=== PATIENT | male | born 1960 | race Two or more races ===

== ENCOUNTER 2019-10-27 10:08 | Inpatient (IN) | payer OTHER, MEDICAID ==
[~2019-10-27] VITALS: Ht 177.8 cm; Wt 108.1 kg
[2019-10-27 10:43] LABS: Hematocrit 46.8 % (41.0-53.0); Hemoglobin 15.4 g/dL (13.5-17.5); Mean Corpuscular Hemoglobin 28.2 pg (28.0-32.0); Mean Corpuscular Hgb Conc. 32.9 g/dL (32.0-36.0); Mean Corpuscular Volume 85.8 fL (80.0-100.0); Platelet Count (auto) 202 10^3/uL (140-450); Red Blood Cells 5.45 10^6/uL (4.5-5.90); Red Cell Distribution Width 13.8 % (11.8-14.3); White Blood Cell 23.5 10^3/uL (4.4-10.8)
[2019-10-27 10:47] LABS: Basophils % (manual) 0 (0.0-2.0); Blast Cells 0; Eosinophils % (manual) 0 (0-7); Metamyelocytes % 0; Myelocytes % 0; Promyelocytes % 0; Reactive Lymphocytes 0
[2019-10-27 10:53] LABS: Albumin 3.3 g/dL (3.4-5.0); Amylase 17 U/L (25-115); Anion Gap 7 (5-15); Blood Urea Nitrogen 11 mg/dL (7-18); Calcium 8.7 mg/dL (8.5-10.1); Carbon Dioxide 27 mmol/L (21-32); Chloride 100 mmol/L (98-107); Glucose 185 mg/dL (74-106); Lipase 70 U/L (73-393); Magnesium 2.8 mg/dL (1.6-2.6); Potassium 3.8 mmol/L (3.5-5.1); Sodium 134 mmol/L (136-145)
[2019-10-27 10:58] LABS: Alanine Aminotransferase 22 U/L (16-61); Alkaline Phosphatase 86 U/L (45-117); Aspartate Aminotransferase 13 U/L (15-37); BUN/Creatinine Ratio 8.5; Bilirubin, Total 1.4 mg/dL (0.2-1.0); GFR African American 73 mL/min; GFR Non-African American 60 mL/min; Total Protein 7.6 g/dL (6.4-8.2)
[2019-10-27 11:30] LABS: Band Neutrophils % (manual) 3; Lymphocytes % (manual) 3 (10.0-50.0); Monocytes % (manual) 9 (0-12)
[2019-10-27] MEDS ORDERED: HYDROmorphone HCL 2 MG/ML VL IV ONE (11:45)
[2019-10-27] MEDS ORDERED: cefTRIAXone 1GM/50ML D5W 50 ML IV ONE (11:45)
[2019-10-27] MEDS ORDERED: METOCLOPRAMIDE HCL 5MG/ml INJ 2ml VIAL IV ONE (11:45)
[2019-10-27] MEDS ORDERED: METOCLOPRAMIDE HCL 5MG/ml INJ 2ml VIAL ONE (11:51)
[2019-10-27 11:54] LABS: Urine Bacteria NONE SEEN /hpf (None Seen); Urine Blood 2+ /uL (Negative); Urine Mucus FEW (None Seen); Urine Specific Gravity 1.032 (1.001-1.035); Urine WBC 6 /hpf (0 - 3)
[2019-10-27] MEDS ORDERED: SODIUM CHLORIDE 0.9% 1,000 ML IV ONE (13:00)
[2019-10-27] MEDS ORDERED: NITROGLYCERIN 0.4 MG SL TAB SL PRN (13:00)
[2019-10-27] MEDS ORDERED: hydrALAZINE HCL 20 MG/ML VL IV PRN (13:00)
[2019-10-27] MEDS ORDERED: MORPHINE SULF INJ 2 MG/ML SYRINGE 1ML IV PRN (13:00)
[2019-10-27] MEDS ORDERED: HYDR12.56 PO (14:02)
[2019-10-27] MEDS ORDERED: TRAM50TA2 PO (14:02)
[2019-10-27] MEDS ORDERED: OMEP-263 PO (14:02)
[2019-10-27] MEDS ORDERED: TAMS0.4C36 PO (14:02)
[2019-10-27] MEDS ORDERED: ATEN50TA PO (14:02)
[2019-10-27] MEDS ORDERED: LACT10SO3 PO (14:02)
[2019-10-27] MEDS ORDERED: FURO1TAB31 PO (14:02)
[2019-10-27] MEDS ORDERED: ASPI-266 PO (14:02)
[2019-10-27] MEDS ORDERED: CYAN500T25 PO (14:03)
[2019-10-27] MEDS ORDERED: ASCO500T11 PO (14:03)
[2019-10-27 14:46] LABS: INR 1.14 (0.9-1.15); Partial Thromboplastin Time 37.2 sec (23.0-31.2)
--- NOTE | 2019-10-27 15:30 | NUR ---
Patient transferred to unit in stable condition.
[2019-10-27 16:42] VITALS: BP 113/57
--- NOTE | 2019-10-27 16:45 | NUR ---
Patient asleep. Stable at this time.
[2019-10-27] MEDS: PIPERACILLIN-TAZOB 3.375GM 100 ML IV SCH ×2 (18:19→23:21)
--- NOTE | 2019-10-27 18:25 | NUR ---
Scheduled IV abx given per order. Patient resting comfortably in bed with no distress noted. Patient stable since transfer to unit.
[2019-10-27] MEDS: HYDROmorphone HCL 2 MG/ML VL IV PRN ×2 (19:15→23:22)
--- NOTE | 2019-10-27 19:15 | NUR ---
Patient medicated for 8/10 abdominal pain. Patient sitting on side of bed. Patient stable since transfer to unit.
--- NOTE | 2019-10-27 19:30 | NUR ---
Opening Shift Note Assumed care of patient, awake and alert. Reported pain.Pain med given not too long ago. Instructed on POC and to call for assist PRN, will continue to monitor for changes Q1hr and PRN.
[2019-10-27 21:00] VITALS: BP 115/64
[2019-10-28] MEDS: HYDROmorphone HCL 2 MG/ML VL IV PRN ×8 (04:13→21:09)
--- NOTE | 2019-10-28 04:57 | NUR ---
paged Dr. Wade regarding pt's fever of 102. waiting for call back
[2019-10-28 05:00] VITALS: BP 115/69
[2019-10-28] MEDS: PIPERACILLIN-TAZOB 3.375GM 100 ML IV SCH ×4 (05:41→23:42)
[2019-10-28 05:46] LABS: Basophils # (auto) 0.1 10 ^3/uL (0-0.2); Basophils % (auto) 0.4 % (0.0-2.0); Eosinophils # (auto) 0 10 ^3/uL (0-0.8); Eosinophils % (auto) 0.1 % (0.0-7.0); Hematocrit 42.3 % (41.0-53.0); Lymphocytes # (auto) 0.9 10 ^3/uL (0.4-5.4); Lymphocytes % (auto) 5.9 % (10.0-50.0); Mean Corpuscular Hemoglobin 28.8 pg (28.0-32.0); Mean Corpuscular Volume 87.3 fL (80.0-100.0); Monocytes # (auto) 0.8 10 ^3/uL (0-1.3); Monocytes % (auto) 5.5 % (0.0-12.0); Neutrophils # (auto) 13.1 10 ^3/uL (1.6-8.6); Neutrophils % (auto) 88.1 % (37.0-80.0); Platelet Count (auto) 153 10^3/uL (140-450); Red Blood Cells 4.85 10^6/uL (4.5-5.90); Red Cell Distribution Width 13.6 % (11.8-14.3); White Blood Cell 14.9 10^3/uL (4.4-10.8)
[2019-10-28 06:05] LABS: Albumin 2.5 g/dL (3.4-5.0); Calcium 7.8 mg/dL (8.5-10.1); Potassium 3.6 mmol/L (3.5-5.1)
[2019-10-28 06:10] LABS: BUN/Creatinine Ratio 11.7; Total Protein 6.5 g/dL (6.4-8.2)
[2019-10-28] MEDS ORDERED: POVIDONE IODINE 10 % TOPICAL OINT 30GM TOP ONE (06:56)
--- NOTE | 2019-10-28 07:00 | NUR ---
brought the pt to the OR. VS stable
[2019-10-28] MEDS ORDERED: levoFLOXacin 500MG 100 ML IV ONE (07:37)
[2019-10-28] MEDS ORDERED: LIDOCAINE 1% HCL (LOCAL ANESTH.) INJ 20ML MDV ONE (07:46)
[2019-10-28] MEDS ORDERED: SUCCINYLCHOLINE CHLORIDE 20 MG/ML 10ML VIAL IV ONE (07:46)
[2019-10-28] MEDS ORDERED: MIDAZOLAM HCL 1MG/1ML-2 ML VIAL ONE (07:49)
[2019-10-28] MEDS ORDERED: PROPOFOL 10 MG/ML 20 ML IV ONE (07:54)
[2019-10-28] MEDS ORDERED: ROCURONIUM 10MG/ML 10ML VIAL IV ONE (07:55)
[2019-10-28] MEDS ORDERED: METOCLOPRAMIDE HCL 5MG/ml INJ 2ml VIAL ONE (08:03)
[2019-10-28] MEDS ORDERED: STERILE WATER 10 ML ONE (08:17)
[2019-10-28] MEDS ORDERED: PHENYLEPHRINE HCL 10 MG/ML VL ONE (08:17)
[2019-10-28] MEDS ORDERED: fentaNYL CITRATE 100 MCG/2 ML VL ONE (08:24)
[2019-10-28] MEDS ORDERED: hydrALAZINE HCL 20 MG/ML VL ONE (08:37)
[2019-10-28] MEDS ORDERED: LIDOCAINE HCL 2% TOP JELLY 5ML TOP ONE (08:46)
[2019-10-28] MEDS ORDERED: MEPERIDINE HCL (25 MG/ML) 1ML VIAL ONE (09:06)
[2019-10-28] MEDS ORDERED: NEOSTIGMINE 1 MG/ML INJ (10mg/10ML VIAL) ONE (09:32)
[2019-10-28] MEDS ORDERED: GLYCOPYRROLATE 0.2 MG/ML 1ML VIAL ONE (09:32)
[2019-10-28] MEDS ORDERED: HYDROmorphone HCL 2 MG/ML VL IV PRN (10:00)
[2019-10-28] MEDS ORDERED: NALOXONE HCL 0.4 MG/ML VIAL IV PRN (10:00)
[2019-10-28] MEDS ORDERED: hydrALAZINE HCL 20 MG/ML VL IV PRN (10:00)
[2019-10-28] MEDS ORDERED: ONDANSETRON HCL 4 MG/2 ML VIAL IV PRN (10:00)
[2019-10-28 11:00] VITALS: BP 119/66
--- NOTE | 2019-10-28 11:14 | NUR ---
PT RETURNED TO FLOOR FROM PACU AT 1100. VSS, AFEBRILE. INCISION SITES X 3 TO ABDOMEN. ABD. BINDER AND JOE DRAIN INTACT. MONITORING CLOSELY.
[2019-10-28 13:00] VITALS: BP 124/71
[2019-10-28] MEDS: ONDANSETRON HCL 4 MG/2 ML VIAL IV PRN ×2 (13:25→20:32)
[2019-10-28] MEDS: D5W/SOD CHLO 0.9% 1,000 ML IV SCH ×2 (13:26→22:23)
[2019-10-28 17:14] VITALS: BP 124/75
--- NOTE | 2019-10-28 17:39 | NUR ---
PT WITH TEMP 102.4. DR ROWLAND NOTIFIED, NEW ORDERS RECEIVED. COOLING MEASURES IN PLACE. WILL CONTINUE TO MONITOR.
[2019-10-28] MEDS: ACETAMINOPHEN 325 MG TAB PO PRN (18:24)
--- NOTE | 2019-10-28 18:27 | NUR ---
90 CC OUT JOE DRAIN, SANGUINOUS.
--- NOTE | 2019-10-28 19:30 | NUR ---
Opening Shift Note Assumed care of patient, awake and alert. Pain reported. pain med given earlier. Instructed on POC and to call for assist PRN, will continue to monitor for changes Q1hr and PRN.
[2019-10-28 21:41] VITALS: BP 138/78
[2019-10-29] MEDS: HYDROmorphone HCL 2 MG/ML VL IV PRN ×6 (00:33→21:02)
[2019-10-29] MEDS: ONDANSETRON HCL 4 MG/2 ML VIAL IV PRN ×2 (02:24→08:46)
--- NOTE | 2019-10-29 02:35 | NUR ---
drained 50ml out sanguinous fluid from the drain
[2019-10-29 05:00] VITALS: BP 140/86
[2019-10-29] MEDS: PIPERACILLIN-TAZOB 3.375GM 100 ML IV SCH ×3 (05:22→18:40)
[2019-10-29 06:04] LABS: Basophils # (auto) 0 10 ^3/uL (0-0.2); Basophils % (auto) 0.2 % (0.0-2.0); Eosinophils # (auto) 0 10 ^3/uL (0-0.8); Eosinophils % (auto) 0.1 % (0.0-7.0); Hematocrit 39.4 % (41.0-53.0); Hemoglobin 13.2 g/dL (13.5-17.5); Lymphocytes # (auto) 0.7 10 ^3/uL (0.4-5.4); Lymphocytes % (auto) 5.8 % (10.0-50.0); Mean Corpuscular Hemoglobin 29.1 pg (28.0-32.0); Mean Corpuscular Hgb Conc. 33.5 g/dL (32.0-36.0); Mean Corpuscular Volume 86.8 fL (80.0-100.0); Monocytes # (auto) 0.9 10 ^3/uL (0-1.3); Monocytes % (auto) 7.7 % (0.0-12.0); Neutrophils # (auto) 10.2 10 ^3/uL (1.6-8.6); Neutrophils % (auto) 86.2 % (37.0-80.0); Nucleated Red Blood Cells % 0.1 %; Platelet Count (auto) 207 10^3/uL (140-450); Red Blood Cells 4.54 10^6/uL (4.5-5.90); Red Cell Distribution Width 13.9 % (11.8-14.3); White Blood Cell 11.8 10^3/uL (4.4-10.8)
--- NOTE | 2019-10-29 06:20 | NUR ---
pt has been taking dilaudid every 4hrs round the clock stated he has so much pain in his abdomen. zofran given 2x in my shift for nausea and hiccups. pt asleep at this time. will continue to monitor
[2019-10-29] MEDS: D5W/SOD CHLO 0.9% 1,000 ML IV SCH ×2 (08:45→19:19)
[2019-10-29 09:00] VITALS: BP 134/73
--- NOTE | 2019-10-29 09:22 | NUR ---
Spoke with pharmacist regarding patient penicillin allergy and his Zosyn order. She stated the order was verified by the ER doctor yesterday and the dose is safe to give as the patient has been receiving it with out any reactions
--- NOTE | 2019-10-29 09:55 | NUR ---
DR. LAKHANI AT BEDSIDE TO DISCUSS PLAN OF CARE WITH PATIENT
[2019-10-29] MEDS: traMADol HCL 50 MG TAB PO SCH ×3 (10:36→22:16)
--- NOTE | 2019-10-29 12:05 | NUR ---
Nutrition Assessment Note please see attached link for complete assessment Est energy needs ABW 89 [id number] kcal (23-25 kcal/kg ABW) Est protein needs: 89-97 g (1.0-1.1g/kg ABW) will reassess PRN Addendum: 10/29/19 at [address] Amended: Links added.
--- NOTE | 2019-10-29 12:27 | NUR ---
PAGED DR. ROWLAND PATIENT IS REQUESTING ICE CHIPS
[2019-10-29 13:00] VITALS: BP 123/73
--- NOTE | 2019-10-29 14:35 | NUR ---
EMPTIED 60 ML OF SEROSANGUINEOUS DRAINAGE FROM JOE DRAIN
[2019-10-29 17:00] VITALS: BP 122/67
--- NOTE | 2019-10-29 19:40 | NUR ---
RECEIVED PATIENT FROM DAY SHIFT RN. PATIENT RESTING IN BED. NO S/S OF DISTRESS NOTED. C/O PAIN @ 5/10 AFTER PAIN MEDICATION GIVEN EARLIER. REINFORCED SCHEDULE OF PAIN MANAGEMENT, WILL COME BACK FOR PAIN MEDICATION LATER WHEN THE TIME IS DUE AND PER PATIENT REQUESTS. PATIENT VERBALIZED UNDERSTANDING. DRESSING ON ABD D/I, JOE DRAIN IN PLACE, ABD BINDER IN PLACE. POC INSTRUCTED AND ENCOURAGED PATIENT TO CALL FOR INDUSTRIAL ECONOMICS TEACHER IF NEEDED. BED IN LOWEST POSITION WITH SIDE RAILS UP X 2. CALL [facility] WITHIN REACH. ALARM ON. CONTINUE TO MONITOR FOR CHANGES Q1H AND PRN.
--- NOTE | 2019-10-29 21:02 | NUR ---
PATIENT C/O PAIN @ 12/24. MEDICATED PATIENT ORDERED. CONTINUE TO MONITOR.
--- NOTE | 2019-10-29 21:30 | NUR ---
REASSESSED PAIN 11/24. CONTINUE TO MONITOR.
[2019-10-29 21:41] VITALS: BP 121/65
[2019-10-30] MEDS: PIPERACILLIN-TAZOB 3.375GM 100 ML IV SCH ×4 (00:27→17:16)
[2019-10-30] MEDS: HYDROmorphone HCL 2 MG/ML VL IV PRN ×6 (01:03→21:18)
--- NOTE | 2019-10-30 01:04 | NUR ---
PATIENT C/O PAIN @ 12/24. MEDICATED PATIENT ORDERED. CONTINUE TO MONITOR.
--- NOTE | 2019-10-30 01:30 | NUR ---
REASSESSED PAIN, PATIENT SLEEPING. NO S/S OF PAIN NOTED. CONTINUE TO MONITOR.
[2019-10-30] MEDS: ACETAMINOPHEN 325 MG TAB PO PRN (04:05)
--- NOTE | 2019-10-30 04:05 | NUR ---
PATIENT TEMP 102, MEDICATED ORDERED. O2 SAT 60% ON RA, PUT PATIENT BACK TO OXYGEN 3L/NC, O2 SAT INCREASED UP TO 83% FOR 10 MINS, RT PAGED, PUT PATIENT ON NON-REBREATHER MASK 10L, O2 SAT INCREASED TO 91%. CONTINUE TO MONITOR.
[2019-10-30 05:00] VITALS: BP 135/68
--- NOTE | 2019-10-30 05:05 | NUR ---
REASSESSED TEMP 101, COOLING MEASURE AND ICE PACKS CONTINUED. O2 SAT 95% ON 10L/NON-REBREATHER MASK. CONTINUE TO MONITOR.
[2019-10-30] MEDS: D5W/SOD CHLO 0.9% 1,000 ML IV SCH ×2 (05:11→14:56)
--- NOTE | 2019-10-30 05:30 | NUR ---
REASSESSED PAIN 09/23. TEMP 98.5. CONTINUE TO MONITOR.
[2019-10-30] MEDS: traMADol HCL 50 MG TAB PO SCH ×3 (06:10→22:07)
--- NOTE | 2019-10-30 06:26 | NUR ---
IV insertion IV access obtained, via clean sterile technique by inserting [22] gauge catheter at [RW] after [1] attempt(s). IV secured properly. No trauma to site. Patient tolerated well. PATIENT ACCIDENTLY PULLED OUT IV ACCESS, IV DC'd with clean sterile technique, catheter fully intact. Pressure dressing applied to site. Patient tolerated well. NOTE:
--- NOTE | 2019-10-30 09:11 | NUR ---
EMPTIED 60 ML OF SEROSANGUINEOUS FLUID FROM JOE DRAIN
[2019-10-30 09:45] VITALS: BP 92/65
[2019-10-30 10:14] LABS: Albumin 2.2 g/dL (3.4-5.0); Calcium 7.8 mg/dL (8.5-10.1); Potassium 3.6 mmol/L (3.5-5.1)
[2019-10-30 10:16] LABS: Basophils # (auto) 0 10 ^3/uL (0-0.2); Basophils % (auto) 0.2 % (0.0-2.0); Eosinophils # (auto) 0 10 ^3/uL (0-0.8); Hematocrit 38.1 % (41.0-53.0); Hemoglobin 12.5 g/dL (13.5-17.5); Lymphocytes # (auto) 1.1 10 ^3/uL (0.4-5.4); Lymphocytes % (auto) 12.9 % (10.0-50.0); Mean Corpuscular Hemoglobin 28.9 pg (28.0-32.0); Mean Corpuscular Hgb Conc. 32.9 g/dL (32.0-36.0); Mean Corpuscular Volume 87.8 fL (80.0-100.0); Monocytes # (auto) 0.9 10 ^3/uL (0-1.3); Monocytes % (auto) 9.9 % (0.0-12.0); Neutrophils # (auto) 6.7 10 ^3/uL (1.6-8.6); Platelet Count (auto) 231 10^3/uL (140-450); Red Blood Cells 4.34 10^6/uL (4.5-5.90); Red Cell Distribution Width 13.7 % (11.8-14.3); White Blood Cell 8.6 10^3/uL (4.4-10.8)
[2019-10-30 10:18] LABS: Bilirubin, Total 0.6 mg/dL (0.2-1.0); Total Protein 6.5 g/dL (6.4-8.2)
--- NOTE | 2019-10-30 10:24 | NUR ---
Dr. Chavez at bedside to discuss plan of care with patient
--- NOTE | 2019-10-30 11:18 | NUR ---
Doctor Rounding Dr. Loya at bedside to discuss plan of care with patient. Order for full liquid diet ordered and doctor stated bandages can be removed and open to air
[2019-10-30 12:43] VITALS: BP 93/70
[2019-10-30 16:39] VITALS: BP 118/73
--- NOTE | 2019-10-30 19:26 | NUR ---
Emptied 70 ml of serosanguineous fluid from JOE to lower abdomen
--- NOTE | 2019-10-30 20:00 | NUR ---
RECEIVED PATIENT FROM DAY SHIFT RN. PATIENT SITTING AT THE SIDE OF BED. NO S/S OF DISTRESS NOTED. C/O PAIN @ 10/10 AFTER PAIN MEDICATION GIVEN EARLIER. REINFORCED SCHEDULE OF PAIN MANAGEMENT, WILL COME BACK FOR PAIN MEDICATION LATER WHEN THE TIME IS DUE AND PER PATIENT REQUESTS. PATIENT VERBALIZED UNDERSTANDING. JOE DRAIN IN PLACE, ABD BINDER IN PLACE. POC INSTRUCTED AND ENCOURAGED PATIENT TO CALL FOR TUMBLER DYEING MACHINE OPERATOR IF NEEDED. BED IN LOWEST POSITION WITH SIDE RAILS UP X 2. CALL MENDOZA WITHIN REACH. CONTINUE TO MONITOR FOR CHANGES Q1H AND PRN.
--- NOTE | 2019-10-30 21:19 | NUR ---
PATIENT C/O PAIN @ 12/24. MEDICATED PATIENT ORDERED. CONTINUE TO MONITOR.
--- NOTE | 2019-10-30 21:45 | NUR ---
REASSESSED PAIN @ 09/23. CONTINUE TO MONITOR.
[2019-10-30 22:00] VITALS: BP 110/56
[2019-10-31] MEDS: PIPERACILLIN-TAZOB 3.375GM 100 ML IV SCH ×4 (00:10→17:31)
--- NOTE | 2019-10-31 00:53 | NUR ---
Emptied 70 ml of serosanguineous fluid from JOE.
[2019-10-31] MEDS: D5W/SOD CHLO 0.9% 1,000 ML IV SCH ×3 (01:15→21:48)
[2019-10-31] MEDS: HYDROmorphone HCL 2 MG/ML VL IV PRN ×6 (01:15→21:40)
--- NOTE | 2019-10-31 01:15 | NUR ---
PATIENT C/O PAIN @ 12/24. MEDICATED PATIENT ORDERED. CONTINUE TO MONITOR.
--- NOTE | 2019-10-31 01:37 | NUR ---
REASSESSED PAIN @ 09/23. CONTINUE TO MONITOR.
[2019-10-31 05:00] VITALS: BP 111/64
--- NOTE | 2019-10-31 05:15 | NUR ---
PATIENT C/O PAIN @ 12/24. MEDICATED PATIENT ORDERED. CONTINUE TO MONITOR.
--- NOTE | 2019-10-31 05:40 | NUR ---
PATIENT SLEEPING. NO S/S OF PAIN NOTED. CONTINUE TO MONITOR.
[2019-10-31] MEDS: traMADol HCL 50 MG TAB PO SCH ×3 (06:07→22:50)
[2019-10-31 09:00] VITALS: BP 114/64
--- NOTE | 2019-10-31 12:33 | NUR ---
Nutrition Followup Note Wt 104.8kg Pt was sitting up in chair at time of rounds. Pt reports appetite is good, pt reports const x 6 days Pt diet has advanced to full liquid and pt po intake is good aeb pt with 92% avg po intake since diet advanced per RN note. Will continue to monitor diet advance and tolerance. Est energy needs ABW 89 [id number] kcal (23-25 kcal/kg ABW) Est protein needs: 63-84g (.06-0.8g/kg BW r/t pt with ANGELIC per MD note ) will reassess PRN Labs: BUn 25H, Creat 1.47H, Alb 2.2L, Ca 7.8L, GLUC 151H BM: pt with no BM per Rn note Skin: Bs 19 low risk, full details in urgent care technician note. PES: Altered nutrition related lab values r.t current chronic medical condition aeb elevated RFTs, mod hypoalb hypocalcemia Decreased nutrient needs r.t adiposity aeb pt`s high BMI of 32.6 kgm2 Comments: 1) Continue to advance diet as medically feaisble 2) refer to OPD dietian on DC 3) continue current plan of care Expected Outcomes/Goals: pt will have improved labs F/u mod 3-5 days
[2019-10-31 13:00] VITALS: BP 123/67
[2019-10-31] MEDS ORDERED: MORPHINE SULF INJ 2 MG/ML SYRINGE 1ML IV PRN (13:00)
[2019-10-31 13:16] LABS: Basophils # (auto) 0.1 10 ^3/uL (0-0.2); Basophils % (auto) 0.9 % (0.0-2.0); Eosinophils # (auto) 0.2 10 ^3/uL (0-0.8); Eosinophils % (auto) 2.3 % (0.0-7.0); Hematocrit 38.6 % (41.0-53.0); Hemoglobin 12.4 g/dL (13.5-17.5); Lymphocytes % (auto) 13.8 % (10.0-50.0); Mean Corpuscular Hemoglobin 28.3 pg (28.0-32.0); Mean Corpuscular Hgb Conc. 32.2 g/dL (32.0-36.0); Monocytes # (auto) 0.7 10 ^3/uL (0-1.3); Monocytes % (auto) 9.8 % (0.0-12.0); Neutrophils # (auto) 5.6 10 ^3/uL (1.6-8.6); Neutrophils % (auto) 73.2 % (37.0-80.0); Platelet Count (auto) 259 10^3/uL (140-450); Red Blood Cells 4.38 10^6/uL (4.5-5.90); Red Cell Distribution Width 13.8 % (11.8-14.3); White Blood Cell 7.6 10^3/uL (4.4-10.8)
[2019-10-31 13:34] LABS: Albumin 2.3 g/dL (3.4-5.0); BUN/Creatinine Ratio 17.7; Calcium 8.4 mg/dL (8.5-10.1); Potassium 3.8 mmol/L (3.5-5.1)
[2019-10-31 13:37] LABS: Bilirubin, Total 0.5 mg/dL (0.2-1.0); Total Protein 6.8 g/dL (6.4-8.2)
[2019-10-31] MEDS: METOCLOPRAMIDE HCL 5MG/ml INJ 2ml VIAL IV SCH ×2 (14:02→22:50)
[2019-10-31 17:00] VITALS: BP 115/53
[2019-10-31] MEDS: SIMETHICONE 80 MG CHEWABLE TABLET PO PRN ×2 (17:30→21:40)
--- NOTE | 2019-10-31 19:37 | NUR ---
DILAUDID 1MG DOSE AT 1722 WAS GIVEN BUT PULLED FROM [facility] UNDER WRONG PATIENT NAME. CHARGE NURSE AND PHARMACIST JONATHAN UNABLE TO OVER RIDE ON [employer] TO CORRECT. PHARMACIST JONATHAN STATES SHE WOULD WITNESS FOR ME THAT THE CORRECT MED AND DOSE WAS GIVEN TO THE CORRECT PATIENT AT 1722.
--- NOTE | 2019-10-31 19:47 | NUR ---
Opening Shift Note Received report and assumed care of patient. Patient is awake and alert. No signs or symptoms of distress noted. Instructed patient on plan of care and to call for assistance as needed. Will continue to monitor.
[2019-10-31 21:34] VITALS: BP 114/58
--- NOTE | 2019-10-31 21:40 | NUR ---
Pain Medication Administration Patient complaining of abdominal pain /. Will administer pain medication per MD order. Will reassess pain level and will continue to monitor.
[2019-10-31] MEDS ORDERED: DOCUSATE ORAL LIQUID 100 MG/10 ML UD GT SCH (22:00)
--- NOTE | 2019-10-31 22:10 | NUR ---
Pain Level Reassessment Patient's pain level reassessed to be 9/10. Offered patient nonpharmacological interventions. Will continue to monitor.
[2019-10-31] MEDS: DOCUSATE SOD 100 MG CAP PO SCH (22:50)
--- NOTE | 2019-10-31 22:50 | NUR ---
Pain Medication Administration Patient complaining of abdominal pain 11/24. Will administer scheduled pain medication per MD order. Will reassess pain level and will continue to monitor.
--- NOTE | 2019-10-31 23:50 | NUR ---
Pain Level Reassessment Patient asleep for pain level reassessment. No signs or symptoms of distress noted, will continue to monitor.
[2019-11-01] MEDS: PIPERACILLIN-TAZOB 3.375GM 100 ML IV SCH ×5 (00:11→23:59)
[2019-11-01 05:00] VITALS: BP 135/71
[2019-11-01] MEDS: traMADol HCL 50 MG TAB PO SCH ×2 (06:00→09:29)
[2019-11-01] MEDS: HYDROmorphone HCL 2 MG/ML VL IV PRN ×4 (06:25→22:40)
[2019-11-01] MEDS: METOCLOPRAMIDE HCL 5MG/ml INJ 2ml VIAL IV SCH ×3 (06:25→22:40)
--- NOTE | 2019-11-01 06:25 | NUR ---
Pain Medication Administration Patient complaining of abdominal pain 11/24. Patient requesting Dilaudid. Educated patient regarding PRN and scheduled pain medications. Patient verbalized understanding, refused scheduled Ultram and continues to request Dilaudid. Will administer pain medication per MD order. Will reassess pain level and will continue to monitor.
[2019-11-01 06:30] LABS: Basophils # (auto) 0 10 ^3/uL (0-0.2); Basophils % (auto) 0.6 % (0.0-2.0); Eosinophils # (auto) 0.2 10 ^3/uL (0-0.8); Eosinophils % (auto) 2.5 % (0.0-7.0); Hematocrit 36.7 % (41.0-53.0); Hemoglobin 12.3 g/dL (13.5-17.5); Lymphocytes # (auto) 1.2 10 ^3/uL (0.4-5.4); Lymphocytes % (auto) 18.8 % (10.0-50.0); Mean Corpuscular Hemoglobin 29.1 pg (28.0-32.0); Mean Corpuscular Hgb Conc. 33.4 g/dL (32.0-36.0); Mean Corpuscular Volume 87.2 fL (80.0-100.0); Monocytes # (auto) 0.5 10 ^3/uL (0-1.3); Monocytes % (auto) 8.4 % (0.0-12.0); Neutrophils # (auto) 4.3 10 ^3/uL (1.6-8.6); Neutrophils % (auto) 69.7 % (37.0-80.0); Nucleated Red Blood Cells % 0.2 %; Platelet Count (auto) 277 10^3/uL (140-450); Red Blood Cells 4.21 10^6/uL (4.5-5.90); Red Cell Distribution Width 13.8 % (11.8-14.3); White Blood Cell 6.2 10^3/uL (4.4-10.8)
[2019-11-01] MEDS: D5W/SOD CHLO 0.9% 1,000 ML IV SCH ×2 (06:38→17:15)
[2019-11-01 06:39] LABS: Calcium 8.1 mg/dL (8.5-10.1); Potassium 3.1 mmol/L (3.5-5.1)
[2019-11-01 06:41] LABS: BUN/Creatinine Ratio 12.3
--- NOTE | 2019-11-01 06:55 | NUR ---
Pain Level reassessment Patient's pain level reassessed to 9/10. Offered patient nonpharmacological interventions. Patient states pain is from stomach gas, patient refuses simethicon at this time. Encouraged patient to ambulate. Will continue to monitor.
--- NOTE | 2019-11-01 07:00 | NUR ---
JOE Drain Output 40ml fluid
--- NOTE | 2019-11-01 07:35 | NUR ---
Opening Shift Note Assumed care of patient, awake and alert. No S/S of distress/SOB or pain reported at this time. Instructed on POC and to call for assist PRN, JOE patent and draining serosanguineous output, and mid abdomen dressing has old dry drainage, BS active, SCD to BLE, call light within reach, instructed to call for assist, cont care, will continue to monitor for changes Q1hr and PRN.
[2019-11-01 08:00] VITALS: BP 120/80
[2019-11-01 09:00] VITALS: BP 120/80
[2019-11-01] MEDS: POTASSIUM CHL 20MEQ/100ML 100 ML IV SCH ×2 (09:30→16:54)
[2019-11-01] MEDS: DOCUSATE SOD 100 MG CAP PO SCH ×2 (09:30→22:40)
--- NOTE | 2019-11-01 11:50 | NUR ---
IV insertion IV access obtained, via clean sterile technique by inserting 20 gauge catheter at left AC after 1 attempt. IV secured properly. No trauma to site. Patient tolerated procedure well.
--- NOTE | 2019-11-01 12:20 | NUR ---
SURGICAL/DRESSING CHANGE CLARIFIED WITH DR ROWLAND REGARDING CHANGING DRESSING, NEW ORDERS RECEIVED TO REMOVE DRESSING AND LEAVE OPEN TO AIR, PT UPDATED, CONT CARE
[2019-11-01 13:00] VITALS: BP 134/59
--- NOTE | 2019-11-01 13:30 | NUR ---
ACTIVITY PT OOB TO CHAIR, OFFERED PT A FWW TO EASE WITH AMBULATION, ALSO ENCOURAGED PT TO USE INCENTIVE SPIROMETER, Q1HR WA, PT VERBALIZED UNDERSTANDING, CONT CARE
--- NOTE | 2019-11-01 16:30 | NUR ---
BM PT REPORTED LARGE LOOSE BM, NOTED SMALL FORMED STOOL IN BSC, CONT CARE
[2019-11-01] MEDS ORDERED: POTASSIUM CHL 20MEQ/100ML 100 ML IV SCH (16:45)
[2019-11-01 17:00] VITALS: BP 118/73
--- NOTE | 2019-11-01 18:15 | NUR ---
DRESSING REMOVED SITE IRRIGATED WITH NS, PADDED DRY WIT STERILE GAUZE, PT TOLERATED WELL, 16 WELL APPROXIMATED FARZANA NOTED ACROSS TOP ABDOMEN, NO REDNESS, FOUL ODOR OR DRAINAGE NOTED, RIGHT MID ABD 2 WELL APPROXIMATED FARZANA, SITE PINK, NO FOUL ODOR OR DRAINAGE NOTED, 20ML OF DARK SEROSANG NOTED AND DRAINED, CONT CARE
--- NOTE | 2019-11-01 19:36 | NUR ---
Opening Shift Note Received report and assumed care of patient. Patient is asleep, awakens to voice. No signs or symptoms of distress noted. Instructed patient on plan of care and to call for assistance as needed. Will continue to monitor.
[2019-11-01 22:00] VITALS: BP 131/74
[2019-11-01] MEDS: oxyCODONE ER 20 MG TAB PO SCH (22:00)
--- NOTE | 2019-11-01 22:40 | NUR ---
Pain Medication Refusal/Administration Patient complaining of abdominal pain 11/24. Patient is scheduled to receive oxycodone. Patient refusing oxycodone, states he does not react well to it. Patient requesting Dilaudid PRN medication to be administered instead. Will administer pain medication per MD order. Will reassess pain level and will continue to monitor.
--- NOTE | 2019-11-01 23:10 | NUR ---
Pain Level Reassessment Patient asleep for pain level reassessment. No signs or symptoms of distress noted, will continue to monitor.
[2019-11-02] MEDS: D5W/SOD CHLO 0.9% 1,000 ML IV SCH ×3 (03:15→23:15)
[2019-11-02] MEDS: HYDROmorphone HCL 2 MG/ML VL IV PRN ×5 (03:43→23:15)
--- NOTE | 2019-11-02 03:43 | NUR ---
Pain Medication Administration Patient complaining of abdominal pain 10/10. Will administer scheduled pain medication per MD order. Will reassess pain level and will continue to monitor.
--- NOTE | 2019-11-02 04:13 | NUR ---
Pain Level reassessment Patient's pain level reassessed to 9/10. Offered patient nonpharmacological interventions. Repositioned patient for comfort and provided with heat packs. Will continue to monitor.
[2019-11-02 05:00] VITALS: BP 150/85
[2019-11-02] MEDS: PIPERACILLIN-TAZOB 3.375GM 100 ML IV SCH ×3 (06:17→18:51)
[2019-11-02] MEDS: METOCLOPRAMIDE HCL 5MG/ml INJ 2ml VIAL IV SCH ×3 (06:17→22:02)
--- NOTE | 2019-11-02 06:55 | NUR ---
JOE Drain Output 45ml fluid
--- NOTE | 2019-11-02 07:15 | NUR ---
Opening Shift Note Assumed care of patient, pt laying in bed with eyes closed, resting quietly in bed. Pt is on room with even and unlabored respirations. No S/S of distress/SOB or pain at this time. Bed is in lowest locked position, wheels are locked, side rails up x2, and call light is within reach. Will continue to monitor for changes Q1hr and PRN.
--- NOTE | 2019-11-02 08:30 | NUR ---
PT CALL FOR PAIN MEDICATIONS PT CALLED STATING HE IS IN NEED FOR PAIN MEDICATION. WILL GIVE ORDERED MEDICATION. WILL CONTINUE TO MONITOR Q1H AND PRN.
[2019-11-02] MEDS: DOCUSATE SOD 100 MG CAP PO SCH ×2 (08:57→22:00)
[2019-11-02] MEDS: oxyCODONE ER 20 MG TAB PO SCH (08:57)
[2019-11-02 09:00] VITALS: BP 128/81
[2019-11-02] MEDS ORDERED: POTASSIUM CHL 20 Meq TABLET PO ONE (10:00)
--- NOTE | 2019-11-02 10:15 | NUR ---
PT UP WALKING AROUND NURSES STATION WITH PHYSICAL THERAPY. PT TOLERATING WELL. WILL CONTINUE TO MONITOR Q1H AND PRN.
--- NOTE | 2019-11-02 10:35 | NUR ---
I faxed SNF order to [facility].
[2019-11-02 10:42] LABS: Basophils # (auto) 0 10 ^3/uL (0-0.2); Basophils % (auto) 0.6 % (0.0-2.0); Eosinophils # (auto) 0.1 10 ^3/uL (0-0.8); Eosinophils % (auto) 1.7 % (0.0-7.0); Hematocrit 38.5 % (41.0-53.0); Hemoglobin 12.6 g/dL (13.5-17.5); Lymphocytes # (auto) 0.9 10 ^3/uL (0.4-5.4); Mean Corpuscular Hemoglobin 28.5 pg (28.0-32.0); Mean Corpuscular Hgb Conc. 32.9 g/dL (32.0-36.0); Mean Corpuscular Volume 86.7 fL (80.0-100.0); Monocytes # (auto) 0.4 10 ^3/uL (0-1.3); Monocytes % (auto) 8.3 % (0.0-12.0); Neutrophils # (auto) 3.7 10 ^3/uL (1.6-8.6); Neutrophils % (auto) 72.4 % (37.0-80.0); Nucleated Red Blood Cells % 0.1 %; Platelet Count (auto) 333 10^3/uL (140-450); Red Blood Cells 4.43 10^6/uL (4.5-5.90); Red Cell Distribution Width 13.7 % (11.8-14.3); White Blood Cell 5.1 10^3/uL (4.4-10.8)
[2019-11-02] MEDS: ENOXAPARIN SOD 40 MG/0.4 ML SYRINGE SC SCH (11:11)
[2019-11-02] MEDS: traMADol HCL 50 MG TAB PO PRN ×2 (11:11→21:18)
[2019-11-02 12:23] LABS: BUN/Creatinine Ratio 7.1; Calcium 8.5 mg/dL (8.5-10.1); Potassium 3.4 mmol/L (3.5-5.1)
--- NOTE | 2019-11-02 12:58 | NUR ---
I called [facility] and left message for home health care case manager asking for an update on the status of the SNF arrangements.
[2019-11-02 13:00] VITALS: BP 112/67
--- NOTE | 2019-11-02 13:41 | NUR ---
I received a call from [facility] Telephone Station Repairer Ryann letting me know that Dr. Barr told her that he was cancelling SNF order.
[2019-11-02 16:56] VITALS: BP 131/72
--- NOTE | 2019-11-02 19:40 | NUR ---
Opening Shift Note Assumed care of patient, awake, AAOx4. No S/S of distress/SOB. On room air and ambulatory to BSC. Bed in lowest locked position, side rails up x2, call light within reach. Instructed on POC and to call for assist PRN, will continue to monitor for changes Q1hr and PRN.
--- NOTE | 2019-11-02 19:45 | NUR ---
Closing Note Patient awake and alert. No S/S of distress/SOB. Care endorsed to Ata KLEIN RN.
[2019-11-02 22:00] VITALS: BP 148/84
[2019-11-03] MEDS: PIPERACILLIN-TAZOB 3.375GM 100 ML IV SCH ×3 (00:18→12:52)
[2019-11-03 05:00] VITALS: BP 136/90
[2019-11-03] MEDS: METOCLOPRAMIDE HCL 5MG/ml INJ 2ml VIAL IV SCH ×2 (06:24→14:00)
[2019-11-03] MEDS: HYDROmorphone HCL 2 MG/ML VL IV PRN ×2 (06:25→12:53)
[2019-11-03 07:18] LABS: Basophils # (auto) 0.1 10 ^3/uL (0-0.2); Basophils % (auto) 0.9 % (0.0-2.0); Eosinophils # (auto) 0.1 10 ^3/uL (0-0.8); Eosinophils % (auto) 2.5 % (0.0-7.0); Hematocrit 36.1 % (41.0-53.0); Hemoglobin 11.8 g/dL (13.5-17.5); Lymphocytes # (auto) 1.2 10 ^3/uL (0.4-5.4); Lymphocytes % (auto) 21.8 % (10.0-50.0); Mean Corpuscular Hemoglobin 28.4 pg (28.0-32.0); Mean Corpuscular Hgb Conc. 32.8 g/dL (32.0-36.0); Mean Corpuscular Volume 86.8 fL (80.0-100.0); Monocytes # (auto) 0.5 10 ^3/uL (0-1.3); Monocytes % (auto) 9.2 % (0.0-12.0); Neutrophils # (auto) 3.6 10 ^3/uL (1.6-8.6); Neutrophils % (auto) 65.6 % (37.0-80.0); Nucleated Red Blood Cells % 0.1 %; Platelet Count (auto) 328 10^3/uL (140-450); Red Blood Cells 4.16 10^6/uL (4.5-5.90); Red Cell Distribution Width 13.6 % (11.8-14.3); White Blood Cell 5.5 10^3/uL (4.4-10.8)
[2019-11-03 07:35] LABS: BUN/Creatinine Ratio 7.7; Calcium 8.4 mg/dL (8.5-10.1)
--- NOTE | 2019-11-03 08:00 | NUR ---
ASSESSMENT NOTE PT IS ALERT ORIENTED X4, RESTING IN BED COMFORTABLY, SELF REPOSITION NEEDED, LARGE SOFT ABDOMEN NOTED, WITH MID ABDOMEN STABLES OPEN TO AIR AND JOE DRAINAGE IN NEGATIVE PRESSURE, ON PAIN MANAGEMENT NEEDED, USE URINAL NEEDED, CALL LIGHT WITHIN REACH
[2019-11-03 09:00] VITALS: BP 138/92
[2019-11-03] MEDS: D5W/SOD CHLO 0.9% 1,000 ML IV SCH (09:15)
--- NOTE | 2019-11-03 09:30 | NUR ---
PHYSICAL THERAPY AT BED SIDE AMBULATING PT IN THE HALLWAYS WITH FRONT WHEEL WALKER, PT TOLERATED WELL
[2019-11-03] MEDS: ENOXAPARIN SOD 40 MG/0.4 ML SYRINGE SC SCH (09:53)
[2019-11-03] MEDS: DOCUSATE SOD 100 MG CAP PO SCH (09:56)
--- NOTE | 2019-11-03 10:00 | NUR ---
DR MAYO AT BED SIDE WITH DISCHARGE HOME INSTRUCTION, INFORM PT THAT HE WILL GOING TO GIVE HIM RX OF PAIN MEDS, AND THE REST OF THE MEDICATION WILL BE SENT ELECTRONICALLY TO HIS HOUSE PHARMACY [facility], AND WILL ARRANGE HOME WALKER
[2019-11-03] MEDS: traMADol HCL 50 MG TAB PO PRN (10:01)
--- NOTE | 2019-11-03 11:37 | NUR ---
I faxed [facility] order to [facility].
--- NOTE | 2019-11-03 12:22 | NUR ---
SPOKE WITH MADELAINE Sanchez IN COLLECTION DEVELOPMENT LIBRARIAN TO FOLLOW UP ON FRONT WHEEL WALKER, SAID THAT IT WILL BE BETWEEN 3 AND 4 PM
--- NOTE | 2019-11-03 12:28 | NUR ---
I called [facility] and spoke with Blower Mechanic Ryann, she said [facility] will be here between [id number] from (phone number [phone]).
[2019-11-03 13:00] VITALS: BP 136/86
--- NOTE | 2019-11-03 15:20 | NUR ---
ALL DISCHARGE INSTRUCTION GIVEN TO PT, VERBALIS UNDERSTANDING, 2 RX GIVEN TO PT ALONG WITH EDUCATION OF HOW TO EMPTY THE JOE DRAINAGE, ALONG WITH DR GANN APPOINTMENT
--- NOTE | 2019-11-03 15:29 | NUR ---
Discharge instructions given as ordered. Encourage to follow up with PMD as instructed. All questions and concerns addressed. Patient verbalized understanding. Medication reconciliation form completed and copy given to patient. Home medications held in Pharmacy returned to patient. IV removed with catheter intact, pressure dressing applied. Telemetry unit returned to ICU. Patient taken to vehicle via wheelchair with all personal belongings, accompanied by staff . No distress noted at time of departure.
== END 2019-11-03 15:30 | disposition home health service (06) | DRG 415 ==
LOC: ER 10:08 → TELE 10:09 → TELE-CENTR 15:30
PROVIDERS: ADMIT Internal Medicine; ATTEND Internal Medicine
PROC: 0FJ44ZZ Inspection of Gallbladder, Percutaneous Endoscopic Approach (ICD-10-PCS; 2019-10-28)
PROC: 0FT40ZZ Resection of Gallbladder, Open Approach (ICD-10-PCS; principal; 2019-10-28 07:58)
DX: K80.00 Calculus of gallbladder with acute cholecystitis without obstruction (principal); N17.9 Acute kidney failure, unspecified; K56.7 Ileus, unspecified; K76.0 Fatty (change of) liver, not elsewhere classified; D72.829 Elevated white blood cell count, unspecified; E66.9 Obesity, unspecified; B96.89 Other specified bacterial agents as the cause of diseases classified elsewhere; R73.9 Hyperglycemia, unspecified; G89.4 Chronic pain syndrome; Z20.828 Contact with and (suspected) exposure to other viral communicable diseases; M54.5 Low back pain; Z88.0 Allergy status to penicillin; Z53.31 Laparoscopic surgical procedure converted to open procedure; Z79.899 Other long term (current) drug therapy; Z68.34 Body mass index [BMI] 34.0-34.9, adult
CPT/HCPCS: 36415; 71045; 74018; 74176; 80048; 80053; 81001; 82150; 82247; 83605; 83690; 83735; 84484; 85007; 85025; 85027; 85610; 85730; 86850; 86900; 86901; 87040; 87070; 87075; 87077; 87186; 87205; 87426; 93005; 97116; 97163; 97530; G0378; J0330; J0696; J1956; J2001; J2250; J2405; J2543; J2704; J3480; J7042

== ENCOUNTER 2020-01-25 09:52 | Emergency (ER) | payer OTHER, MEDICAID ==
[~2020-01-25] VITALS: Ht 177.8 cm; Wt 101.6 kg
[~2020-01-25 09:52] MED LIST: ASCO500T11 PO; ASPI-266 PO; ATEN50TA PO; CYAN500T25 PO; HYDR12.56 PO; OMEP-263 PO; TAMS0.4C36 PO; TRAM50TA2 PO
[2020-01-25] MEDS ORDERED: KETOROLAC TROMETH 60MG/2ML VIAL IM ONE (10:15)
[2020-01-25 10:32] LABS: Basophils # (auto) 0 10 ^3/uL (0-0.2); Eosinophils # (auto) 0.1 10 ^3/uL (0-0.8); Eosinophils % (auto) 1.2 % (0.0-7.0); Monocytes # (auto) 0.5 10 ^3/uL (0-1.3); White Blood Cell 6.6 10^3/uL (4.4-10.8)
[2020-01-25 10:33] LABS: Basophils % (auto) 0.4 % (0.0-2.0); Hematocrit 44.6 % (41.0-53.0); Hemoglobin 14.7 g/dL (13.5-17.5); Mean Corpuscular Hgb Conc. 32.9 g/dL (32.0-36.0); Monocytes % (auto) 7.4 % (0.0-12.0); Nucleated Red Blood Cells % 0.3 %; Platelet Count (auto) 197 10^3/uL (140-450); Red Blood Cells 5.65 10^6/uL (4.5-5.90); Red Cell Distribution Width 14.4 % (11.8-14.3)
[2020-01-25 10:53] LABS: Albumin 3.2 g/dL (3.4-5.0); Anion Gap 4 (5-15); Blood Urea Nitrogen 18 mg/dL (7-18); Calcium 8.6 mg/dL (8.5-10.1); Carbon Dioxide 30 mmol/L (21-32); Chloride 102 mmol/L (98-107); Glucose 157 mg/dL (74-106); Lipase 89 U/L (73-393); Potassium 3.7 mmol/L (3.5-5.1); Sodium 136 mmol/L (136-145)
[2020-01-25 10:59] LABS: Alanine Aminotransferase 21 U/L (16-61); Alkaline Phosphatase 107 U/L (45-117); Aspartate Aminotransferase 13 U/L (15-37); BUN/Creatinine Ratio 16.8; Bilirubin, Total 0.5 mg/dL (0.2-1.0); GFR African American 90 mL/min; GFR Non-African American 75 mL/min
[2020-01-25 11:17] LABS: Urine Bacteria NONE SEEN /hpf (None Seen); Urine Blood Negative /uL (Negative); Urine Mucus FEW (None Seen); Urine WBC <1 /hpf (0 - 3)
[2020-01-25] MEDS ORDERED: PANTOPRAZOLE 40 MG TAB PO ONE (13:30)
[2020-01-25] MEDS ORDERED: traMADol HCL 50 MG TAB PO ONE (13:30)
[2020-01-25 14:55] VITALS: BP 117/71
== END 2020-01-25 17:12 | disposition home or self-care (01) ==
LOC: ER 09:52
DX: R10.9 Unspecified abdominal pain (principal); F41.9 Anxiety disorder, unspecified; I10 Essential (primary) hypertension; Z79.899 Other long term (current) drug therapy; Z79.82 Long term (current) use of aspirin; Z88.0 Allergy status to penicillin; Z90.49 Acquired absence of other specified parts of digestive tract
CPT/HCPCS: 36415; 71046; 74176; 80053; 81001; 83690; 84484; 85025; 96372; 99285; J1885

== ENCOUNTER 2023-10-16 04:29 | Emergency (ER) | payer MEDICAID, OTHER ==
[~2023-10-16] VITALS: Ht 177.8 cm; Wt 100.9 kg
[~2023-10-16 04:29] MED LIST changes: -ASPI-266 PO; +ASPI81TA28 PO; -HYDR12.56 PO; +HYDR12.59 PO; -OMEP-263 PO; +OMEP-448 PO
[2023-10-16] MEDS: HYDROcodone-ACET 10/325MG TAB PO ONE (07:18)
[2023-10-16 07:38] VITALS: BP 151/113; PULSE 61; RESP 16; O2SAT 98
[2023-10-16] MEDS ORDERED: METH-1182 PO (07:40)
== END 2023-10-16 07:44 | disposition home or self-care (01) ==
LOC: ER 04:29
DX: M24.811 Other specific joint derangements of right shoulder, not elsewhere classified (principal); I10 Essential (primary) hypertension; Z98.890 Other specified postprocedural states; Z88.0 Allergy status to penicillin; Z79.899 Other long term (current) drug therapy
CPT/HCPCS: 73030

== ENCOUNTER 2023-12-16 19:19 | Emergency (ER) | payer OTHER ==
[~2023-12-16] VITALS: Ht 182.9 cm; Wt 100.0 kg
[~2023-12-16 19:19] MED LIST changes: +METH-1182 PO; -TAMS0.4C36 PO; +TAMS0.4C39 PO
[2023-12-16] MEDS ORDERED: MORPHINE SULFATE INJ 2 MG/ml SYRG IM ONE (22:15)
[2023-12-16] MEDS ORDERED: CYCL-837 PO (22:17)
[2023-12-16 22:28] VITALS: TEMP 97.9
[2023-12-16] MEDS: MORPHINE SULFATE INJ 2 MG/ml SYRG IV ONE (22:52)
[2023-12-16] MEDS: ONDANSETRON ODT 4 MG TAB PO ONE (23:00)
[2023-12-16 23:23] VITALS: O2SAT 97
[2023-12-16 23:35] VITALS: BP 147/96; PULSE 73; RESP 18
== END 2023-12-16 23:36 | disposition home or self-care (01) ==
LOC: ER 19:19 → EDBD 19:19 → ER 23:36
DX: S39.012A Strain of muscle, fascia and tendon of lower back, initial encounter (principal); S29.012A Strain of muscle and tendon of back wall of thorax, initial encounter; I10 Essential (primary) hypertension; Z90.49 Acquired absence of other specified parts of digestive tract; Z79.899 Other long term (current) drug therapy; Z88.0 Allergy status to penicillin; V43.52XA Car driver injured in collision with other type car in traffic accident, initial encounter; Y93.89 Activity, other specified; Y92.89 Other specified places as the place of occurrence of the external cause; Y99.8 Other external cause status
CPT/HCPCS: 72070; 72100; 96374; 99285; J2270; Q0162